=== PATIENT | female | born 1970 | race Hispanic/Latino ===

== ENCOUNTER → 2020-05-21 | Outpatient (CLI) | payer BC ==
[~2020-05-21] MED LIST: GADOBENATE DIMEGLUMINE 1 ML IV ONE; SODIUM CHLORIDE 0.9% 100 ML ONE
--- NOTE | 2020-05-21 12:27 | Diagnostic Imaging Report ---
MRI ABDOMEN WOW HISTORY: ^ABNORMAL GALLBLADDER IMAGING COMPARISON: None. TECHNIQUE: MRI of the abdomen with exam tailored to evaluate the biliary tree and the pancreas was performed with and without gadolinium. Multiplanar, multisequence images, including heavily T2-weighted MRCP sequences were obtained. FINDINGS: Suboptimal exam, MRCP images are markedly degraded/distorted Hepatobiliary Findings: Bile ducts: Normal in caliber with no intraluminal filling defects. No strictures or dilated intra- or extrahepatic bile ducts. Liver: A T2 hyperintense 23 mm lesion in segment 5 demonstrates peripheral puddling of contrast which fills in on later phases compatible with hemangioma. Identical 9 mm lesion in segment 2. A few additional nonenhancing small simple hepatic cysts, largest superior to the gallbladder measuring 12 mm. Gallbladder: Unremarkable. Pancreas: Unremarkable. Additional Findings: Lung bases: Unremarkable. Spleen: Unremarkable Adrenals: Unremarkable Kidneys and ureters: Kidneys are slightly under rotated bilaterally, otherwise unremarkable. No hydronephrosis Bowel: Unremarkable. Lymph nodes: Unremarkable. Peritoneum: Unremarkable. Vessels: Mild narrowing of the celiac axis at it's origin. Abdominal wall: Bilateral breast prostheses Bones: Small enhancing focus in the L3 vertebral body, contains lipid, likely an intraosseous hemangioma. IMPRESSION: Suboptimal exam, MRCP images are markedly degraded/distorted 1. Unremarkable gallbladder. 2. Two hepatic hemangiomas are noted, no follow-up necessary. Signed by: Dorian Cruz MD on 05/21/2020 12:24 PM
== END ==
LOC: MRI 08:57
PROVIDERS: ATTEND Internal Medicine Gastroenterology
DX: R93.2 Abnormal findings on diagnostic imaging of liver and biliary tract (principal)
CPT/HCPCS: 74183; J7050